=== PATIENT | male | born 1995 | race Two or more races ===

== ENCOUNTER 2017-05-08 23:56 | Emergency (ER) | payer BC ==
[~2017-05-08] VITALS: Ht 167.6 cm; Wt 109.1 kg
[~2017-05-08 23:56] MED LIST: FLEXERIL10 MG PO; NAPROSYN500 MG PO; ULTRAM50 MG PO
[2017-05-09 00:36] LABS: HEMATOCRIT 51.4 % (38.0-50.0); HEMOGLOBIN 18.1 G/DL (12.5-16.6); MCH 30.7 PG (29.0-34.0); MCHC 35.2 G/DL (30.0-36.0); MCV 87.1 FL (86-99); PLATELET COUNT 294 K/uL (156-360); RBC DIS.WIDTH-CV 12.2 % (11.8-14.6); RBC DIS.WIDTH-SD 38.9 % (39-53); WHITE BLOOD COUNT 9.4 K/uL (4.1-10.2)
[2017-05-09 00:42] LABS: CHLORIDE 107 mEq/L (99-109); POTASSIUM 4.6 mEq/L (3.7-5.4); SODIUM 140 mEq/L (136-147)
[2017-05-09 00:44] LABS: GLUCOSE 88 mg/dL (70-99)
[2017-05-09 00:48] LABS: CREATININE 1.2 mg/dL (0.6-1.3); GFR ESTIMATE (CALCULATED) > 59 mL/min/ (58.99-99999); UREA NITROGEN (BUN) 17 mg/dL (9-23)
[2017-05-09 00:51] LABS: TROP-I INTERPRETATION NEGATIVE; TROPONIN-I < 0.01 ng/mL (0.0-0.30)
[2017-05-09] MEDS ORDERED: VENTOLIN HFA18 GM IH (03:25)
[2017-05-09 03:55] VITALS: BP 133/71
== END 2017-05-09 04:00 | disposition home or self-care (01) ==
LOC: EME 23:56
DX: J45.901 Unspecified asthma with (acute) exacerbation (principal); R94.31 Abnormal electrocardiogram [ECG] [EKG]
CPT/HCPCS: 71046; 80048; 84484; 85027; 93005; 94640; 99281; 99285